=== PATIENT | female | born 1985 | race American Indian/Alaskan Native ===

== ENCOUNTER 2021-06-22 11:33 | Observation (INO) | payer MEDICAID ==
[2021-06-22] MEDS ORDERED: SODIUM CHLORIDE 0.9% 1000 ML 1,000 ML IV ONE ×2 (11:54→13:42)
--- NOTE | 2021-06-22 11:55 | Emergency Department Report ---
ED General Adult HPI - General Chief complaint: Abdominal Pain Stated complaint: TWISTED OVARIES Time Seen by Provider: 06/22/21 11:43 Source: patient Mode of arrival: Wheelchair Limitations: No Limitations - History of Present Illness Initial comments: 35-year-old -Portuguese female sent to the ER by Dr. Hartley for possible exploratory surgery for concern for ovarian torsion. Patient is tearful and in pain. Patient reports that she has been in pain with worsening in the last 12 days. She does admit to some vaginal bleeding some diarrhea. She states that she had taken pill. She denies any nausea no vomiting no chest pain or shortness of breath Location: pelvis Severity scale (0 -10): 9 Quality: stabbing, sharp Consistency: constant Improves with: none Worsens with: none Associated Symptoms: denies other symptoms Treatments Prior to Arrival: none - Related Data Previous Rx's Medication Instructions Recorded Last Taken Type HYDROcodone/APAP 5-325 [[place] 2 each PO Q6HR PRN #30 tablet 06/22/21 Unknown Rx 5/325] HYDROcodone/APAP 5-325 [[place] 2 each PO Q6HR PRN #30 tablet 06/22/21 Unknown Rx 5/325] Allergies Allergy/AdvReac Type Severity Reaction Status Date / Time No Known Allergies Allergy Verified 06/22/21 11:44 ED Review of Systems ROS: Stated complaint: TWISTED OVARIES Other details as noted in HPI Constitutional: no symptoms reported Eyes: as per HPI ENT: as per HPI Respiratory: no symptoms reported Gastrointestinal: abdominal pain, diarrhea. denies: nausea, vomiting, constipation, hematemesis, hematochezia ED Past Medical Hx - Medications Home Medications: Home Medications Medication Instructions Recorded Confirmed Last Taken Type HYDROcodone/APAP 5-325 [[place] 2 each PO Q6HR PRN #30 tablet 06/22/21 Unknown Rx 5/325] HYDROcodone/APAP 5-325 [[place] 2 each PO Q6HR PRN #30 tablet 06/22/21 Unknown Rx 5/325] ED Physical Exam - General Limitations: No Limitations General appearance: alert, in distress, other (Appears to be disc comfort) - Head Head exam: Present: atraumatic, normocephalic - Eye Eye exam: Present: normal appearance - ENT ENT exam: Present: mucous membranes moist - Respiratory Respiratory exam: Absent: respiratory distress, accessory muscle use - Cardiovascular Cardiovascular Exam: Present: tachycardia - GI/Abdominal GI/Abdominal exam: Present: soft, tenderness, guarding - Extremities Exam Extremities exam: Present: normal inspection, full ROM - Back Exam Back exam: Present: normal inspection - Neurological Exam Neurological exam: Present: alert, oriented X3 - Psychiatric Psychiatric exam: Present: normal affect, normal mood - Skin Skin exam: Present: warm, dry, intact, normal color. Absent: rash ED Course Vital Signs 06/22/21 06/22/21 06/22/21 11:40 13:13 17:07 Temperature 98.3 F 98.1 F 97.8 F Pulse Rate 107 H 90 76 Respiratory 18 18 12 Rate Blood Pressure 122/77 113/59 Blood Pressure 114/36 [Right] O2 Sat by Pulse 100 100 100 Oximetry 06/22/21 06/22/21 06/22/21 17:12 17:17 17:22 Temperature Pulse Rate 74 71 71 Respiratory 23 15 17 Rate Blood Pressure 123/67 126/71 123/73 Blood Pressure [Right] O2 Sat by Pulse 100 100 100 Oximetry 06/22/21 06/22/21 17:37 17:45 Temperature 98.1 F Pulse Rate 70 Respiratory 20 22 Rate Blood Pressure 126/74 Blood Pressure [Right] O2 Sat by Pulse 100 Oximetry - Reevaluation(s) Reevaluation #1: 06/22/21 12:35 Patient reports her pain is a 10 out of [address] Hartley he agrees to morphine 4 mg IV Zofran 4 mg IV. Consent was signed by Dr. Hartley and witnessed by me. ED Medical Decision Making - Lab Data Result diagrams: 06/22/21 11:56 - Medical Decision Making 35-year-old -Portuguese female sent to the ER by Dr. Hartley for possible exploratory surgery for concern for ovarian torsion. Patient is tearful and in pain. Patient reports that she has been in pain with worsening in the last 12 days. She does admit to some vaginal bleeding some diarrhea. She states that she had taken pill. She denies any nausea no vomiting no chest pain or shortness of breath Orders have been placed CBC type and screen serum hCG n.p.o. normal saline 125 mL/h, pelvic ultrasound IV placement. Critical care attestation.: If time is entered above; I have spent that time in minutes in the direct care of this critically ill patient, excluding procedure time. ED Disposition Clinical Impression: Pelvic pain Disposition: 01 HOME / SELF CARE / HOMELESS Is pt being admited?: No Does the pt Need Aspirin: No Condition: Good
[2021-06-22 12:27] LABS: Basophils % (Auto) 0.4 % (0.0-1.8); Eosinophils # (Auto) 0.1 K/mm3 (0.0-0.4); Hematocrit 30.2 % (30.3-42.9); Hemoglobin 10.2 gm/dl (10.1-14.3); Lymphocytes # (Auto) 1.5 K/mm3 (1.2-5.4); Lymphocytes % (Auto) 22.1 % (13.4-35.0); Mean Corpuscular HGB Conc 34 % (30-34); Mean Corpuscular Volume 94 fl (79-97); Monocytes # (Auto) 0.4 K/mm3 (0.0-0.8); Monocytes % (Auto) 5.2 % (0.0-7.3); Platelet Count 287 K/mm3 (140-440); Red Blood Count 3.22 M/mm3 (3.65-5.03); Red Cell Distribution Width 12.6 % (13.2-15.2)
[2021-06-22] MEDS ORDERED: ONDANSETRON 4 MG/2 ML INJ IV ONE (12:35)
[2021-06-22] MEDS ORDERED: MORPHINE 4 MG/1 ML INJ IV ONE (12:35)
--- NOTE | 2021-06-22 12:58 | Ultrasound Report ---
Ultrasound pelvis duplex Doppler complete HISTORY: Pelvic pain, concern for ovarian torsion, right lower quadrant pain for 12 days TECHNIQUE: Transabdominal ultrasound with color and spectral Doppler imaging. COMPARISON: None. FINDINGS: Transabdominal exam is limited and resolution secondary to an empty bladder and poor sonogr aphic window. The uterus is enlarged and heterogeneous measuring 9.9 x 5.0 x 6.8 cm. Multiple fibroid s are identified. The largest fibroid measures 5.5 cm at the fundus. The endometrial stripe measures 14 mm. The left ovary is not identified. The right ovary is identified in the cul-de-sac but also poorly imaged. The right ovary measures 3.4 x 2.8 x 3.2 cm. No ovarian cyst or mass. No convincing blood flow to the right ovary is demonstrated on color and spectral Doppler interrogation. IMPRESSION: Limited exam as described. No convincing blood flow to the right ovary is demonstrated on this limite d transabdominal exam. The left ovary is not visualized. Uterine fibroid disease. CRITICAL RESULT: Time of Discovery (NURSE CHARGE RN/CDT): 1145 hours Time of Communication (NURSE CHARGE RN/CDT): 1151 hours Licensed Practitioner Receiving Report: Kerline West Read-Back Performed: Yes. Signer Name: Sergo Mclaughlin Jr, MD Signed: 06/22/2021 12:54 PM Workstation Name: [id number]
--- NOTE | 2021-06-22 14:39 | History and Physical Report ---
History of Present Illness Date of examination: 06/22/21 Date of admission: 06/22/21 Chief complaint: lower abd and pelvic pains x1wk duration History of present illness: Patient was under management for elective using mifepristone. Process was progressing as expected until the emergence of persistent pain a 1wk ago. ER noted a possible non-perfusion of right ovary. No free fluid or structure were found. Past History Past Medical History: no pertinent history VERIFICATION SPECIALIST History: fibroids Medications and Allergies Allergies Allergy/AdvReac Type Severity Reaction Status Date / Time No Known Allergies Allergy Verified 06/22/21 11:44 Active Meds: Active Medications Sodium Chloride (Nacl 0.9% 1000 Ml) 1,000 mls @ 125 mls/hr IV BOLUS ONE Stop: 06/22/21 19:53 Last Admin: 06/22/21 12:17 Dose: 125 mls/hr Sodium Chloride (Nacl 0.9% 1000 Ml) 1,000 mls @ 999 mls/hr IV BOLUS ONE Stop: 06/22/21 14:42 Last Admin: 06/22/21 13:44 Dose: Not Given Review of Systems All systems: negative Gastrointestinal: abdominal pain Genitourinary: pelvic pain - Vital Signs Vital signs: Vital Signs Temp Pulse Resp BP Pulse Ox 98.3 F 107 H 18 122/77 100 06/22/21 11:40 06/22/21 11:40 06/22/21 11:40 06/22/21 11:40 06/22/21 11:40 Temp Pulse Resp BP Pulse Ox 98.1 F 90 18 114/36 100 06/22/21 13:13 06/22/21 13:13 06/22/21 13:13 06/22/21 13:13 06/22/21 13:13 - Physical Exam Breasts: Positive: deferred Cardiovascular: Normal S1, Normal S2 Lungs: Positive: Normal air movement Abdomen: Positive: tenderness, guarding, normal bowel sounds, rigidity Uterus: Positive: normal size, nodular Extremities: Positive: normal Deep Tendon Reflex Grade: Normal +2 Results Result Diagrams: 06/22/21 11:56 Abnormal lab results 06/22/21 06/22/21 Range/Units 11:56 11:56 RBC 3.22 L (3.65-5.03) M/mm3 Hct 30.2 L (30.3-42.9) % RDW 12.6 L (13.2-15.2) % Seg Neutrophils % 71.3 H (40.0-70.0) % HCG, Quant 960.8 H (0-4) mIU/mL All other labs normal. Assessment and Plan - Patient Problems (1) Abdominal pain Current Visit: Yes Status: Acute (2) Pelvic pain Current Visit: Yes Status: Acute (3) Ovarian torsion Current Visit: Yes Status: Acute Plan to address problem: for exploratory laparotomy.
[2021-06-22] MEDS ORDERED: LIDOCAINE MPF (2%) 20 MG/1 ML VIAL 5 ML ONE (14:57)
[2021-06-22] MEDS ORDERED: SUCCINYLCHOLINE CHLORIDE 200 MG/10 ML INJ MDV ONE (14:57)
[2021-06-22] MEDS ORDERED: ROCURONIUM 50 MG/5 ML INJ IV ONE (14:58)
[2021-06-22] MEDS ORDERED: propofoL 200 MG/20 ML VIAL IV ONE (14:58)
[2021-06-22] MEDS ORDERED: HYDROmorphone 1 MG/1 ML INJ ONE (14:58)
[2021-06-22] MEDS ORDERED: MIDAZOLAM 2 MG/2 ML INJ ONE (15:11)
[2021-06-22] MEDS ORDERED: SODIUM CHLORIDE 0.9% 1000 ML 1,000 ML ONE ×2 (15:17→16:44)
--- NOTE | 2021-06-22 15:21 | Anesthesia Consultation ---
Anesthesia Consult and Med Hx Date of service: 06/22/21 - Airway Anesthetic Teeth Evaluation: Good ROM Head & Neck: Adequate Mental/Hyoid Distance: Adequate Mallampati Class: Class III Intubation Access Assessment: Possibly Difficult - Pre-Operative Health Status ASA Pre-Surgery Classification: ASA2, Emergency Proposed Anesthetic Plan: General - Pulmonary Hx Smoking: Yes (THC) Hx Asthma: Yes Hx Respiratory Symptoms: No - Cardiovascular System Hx Hypertension: No - Central Nervous System CVA: No - Endocrine Hx Renal Disease: No Hx Liver Disease: No Hx Insulin Dependent Diabetes: No Hx Non-Insulin Dependent Diabetes: No Hx Thyroid Disease: No - Hematic Hx Anemia: Yes - Other Systems Hx Obesity: No - Additional Comments Anesthesia Medical History Comments: No hx anesthetic complications. Concern for ovarian torsion scheduled for ex-lap.
--- NOTE | 2021-06-22 15:22 | Anesthesia Day of Surgery ---
Anesthesia Day of Surgery - Day of Surgery Patient Examined: Yes Patient H&P Reviewed: Yes Patient is NPO: Yes
[2021-06-22] MEDS ORDERED: ceFAZolin 1 GM VIAL ONE ×2 (15:36)
[2021-06-22] MEDS ORDERED: SODIUM CHLORIDE 0.9% IRR 1,500 ML BOTTLE IR ONE (15:48)
[2021-06-22] MEDS ORDERED: dexAMETHasone 20 MG/5 ML VIAL ONE (15:54)
[2021-06-22] MEDS ORDERED: ONDANSETRON 4 MG/2 ML INJ ONE (15:54)
[2021-06-22] MEDS ORDERED: ONDANSETRON 4 MG/2 ML INJ IV PRN ×2 (16:30→18:03)
--- NOTE | 2021-06-22 17:08 | Operative Report ---
Operative Report Operative Report: Date of surgery: October 01, 2019 Admission diagnosis: Pelvic pain Postoperative diagnosis: The same. Procedure: Diagnostic laparotomy, Surgeon: Bill De La Fuente MD Anesthesia: General anesthesia Anesthesiologist: Chong BASURTO Estimated blood loss: Less than 2 5 cc Complications: None Findings: Thefallopian tubes and ovaries were all grossly normal. The bowels, omentum, inferior dome of the diaphragm, the liver were all grossly normal. There were two 4 x 4 inch fibroids distending the anterior fundal aspect of the uterus. The one on the right side was undergoing a degenerative change with denudation of the serosa with evidence oozing of blood from the convex aspect. This oozing of blood likely explained the excruciating pain the patient was feeling within her abdomen and pelvis. Procedure in details: Patient was taken to the operating room and in the straight supine position she was given general anesthesia. Patient was then put in the straight supine position and prepped in the abdomen. The drapes were placed. A timeout was done. Wished to go ahead from the insurance verification specialist a subumbilical midline incision was made. The anterior abdominal wall was divided in layers without any difficulty. The uterus with contain fibroids was exteriorized. Incisions were made over the capsule of the 2 big fibroids and removed. The craters were extirpated with multiple stitches of #1 Vicryl hemostasis was secured with Surgicel. The pelvis was again inspected and no other abnormalities were found. The upper abdomen was unremarkable. The fascia was closed with looped PDS the subcutaneous layer was hemostatic. The skin was closed subcuticularly with 4-0 Vicryl. The patient tolerated the procedure well. There were no complications. Blood loss was estimated at less than 250 cc. All sponges and instruments were accounted for. The patient was transferred in satisfactory condition to the recovery room.
[2021-06-22] MEDS ORDERED: oxyCODONE /ACETAMINOPHEN 5-325MG TAB PO PRN ×2 (17:19→18:03)
[2021-06-22] MEDS: HYDROmorphone 1 MG/1 ML INJ IV PRN ×2 (17:45→17:55)
[2021-06-22] MEDS ORDERED: ACETAMINOPHEN 325 MG TAB PO PRN (18:03)
[2021-06-22] MEDS ORDERED: HYDROmorphone 1 MG/1 ML INJ IV PRN (18:03)
[2021-06-22] MEDS ORDERED: SODIUM CHLORIDE 0.9% 1000 ML 1,000 ML IV SCH (18:15)
--- NOTE | 2021-06-22 18:26 | Post Anesthesia Evaluation ---
- Post Anesthesia Evaluation Patient Participated: Yes Airway Patent: Yes Stable Respiratory Function: Yes Nausea/Vomiting: No Temp > 96.8F: Yes Pain Manageable: Yes Adequeate Hydration: Yes Anesthesia Complications: No
[2021-06-22] MEDS: oxyCODONE /ACETAMINOPHEN 5-325MG TAB PO PRN (19:34)
[2021-06-23] MEDS: oxyCODONE /ACETAMINOPHEN 5-325MG TAB PO PRN ×3 (00:27→09:27)
[2021-06-23] MEDS ORDERED: MORPHINE 2 MG/1 ML INJ IV PRN (08:00)
--- NOTE | 2021-06-23 08:59 | Progress Note ---
Assessment and Plan - Patient Problems (1) Abdominal pain Current Visit: Yes Status: Resolved (2) Pelvic pain Current Visit: Yes Status: Resolved (3) Ovarian torsion Current Visit: Yes Status: Resolved (4) Post-operative state Current Visit: Yes Status: Acute Plan to address problem: Stable and ready for d/c. Subjective Date of service: 06/23/21 Principal diagnosis: Status post exploratory laparotomy day 1. Interval history: Was placed on 23 hrs observation post op. Stable and happy and alert and chatty. Objective - Constitutional Vitals: Vital Signs - 12hr 06/23/21 06/23/21 06/23/21 00:00 00:27 03:25 Temperature 99.2 F Pulse Rate 80 Respiratory 20 12 12 Rate Blood Pressure 90/54 [Right] O2 Sat by Pulse 100 Oximetry 06/23/21 04:00 Temperature 98.5 F Pulse Rate 73 Respiratory 20 Rate Blood Pressure 89/54 [Right] O2 Sat by Pulse 100 Oximetry General appearance: Present: no acute distress - EENT Eyes: PERRL Extremities: pulses intact, No edema, normal color, Full ROM - Gastrointestinal General gastrointestinal: Present: normal bowel sounds - Genitourinary Female genitourinary: deferred - Integumentary Integumentary: clear, warm, dry - Labs CBC & Chem 7: 06/22/21 11:56 Labs: Abnormal lab results 06/22/21 06/22/21 Range/Units 11:56 11:56 RBC 3.22 L (3.65-5.03) M/mm3 Hct 30.2 L (30.3-42.9) % RDW 12.6 L (13.2-15.2) % Seg Neutrophils % 71.3 H (40.0-70.0) % HCG, Quant 960.8 H (0-4) mIU/mL Medications & Allergies - Medications Allergies/Adverse Reactions: Allergies No Known Allergies Allergy (Verified 06/22/21 11:44) Home Medications: Home Medications Medication Instructions Recorded Confirmed Last Taken Type HYDROcodone/APAP 5-325 [[place] 2 each PO Q6HR PRN #30 tablet 06/22/21 Unknown Rx 5/325] HYDROcodone/APAP 5-325 [[place] 2 each PO Q6HR PRN #30 tablet 06/22/21 Unknown Rx 5/325] Active Medications: Generic Name Dose Route Start Last Admin Trade Name Mikeq PRN Reason Stop Dose Admin Acetaminophen 650 mg 06/22/21 18:03 Acetaminophen 325 Mg Tab PO Q4H PRN Pain MILD(1-3)/Fever >100.5/GARG Sodium Chloride 1,000 mls @ 125 mls/hr 06/22/21 18:15 06/22/21 19:37 Nacl 0.9% 1000 Ml IV 125 mls/hr DIRECT JONAH Administration Morphine Sulfate 2 mg 06/23/21 08:00 Morphine 2 Mg/1 Ml Inj IV Q4H PRN Pain, Moderate (4-6) Ondansetron HCl 4 mg 06/22/21 18:03 Ondansetron 4 Mg/2 Ml Inj IV Q8H PRN Nausea And Vomiting Oxycodone/Acetaminophen 2 tab 06/22/21 18:00 06/23/21 03:25 Oxycodone /Acetaminophen 5-325mg Tab PO 2 tab ONCE PRN Administration Pain , Severe (7-10) Sodium Chloride 10 ml 06/22/21 22:00 Sodium Chloride 0.9% 10 Ml Flush Syringe IV BID JONAH Sodium Chloride 10 ml 06/22/21 18:03 Sodium Chloride 0.9% 10 Ml Flush Syringe IV PRN PRN LINE FLUSH
--- NOTE | 2021-06-23 09:01 | Discharge Summary ---
Providers - Providers Date of Admission: 06/22/21 18:04 Date of discharge: 06/23/21 Attending physician: DEEP BROWN MD Primary care physician: REAL TIME TRADER Hospitalization Reason for admission: observation Procedure: other (Exploratory laparotomy and myomectomy.) Procedure details: See op report. Incision: normal, dry, intact Condition at discharge: Good Disposition: 01 HOME / SELF CARE / HOMELESS - Discharge Diagnoses (1) Abdominal pain Status: Resolved (2) Pelvic pain Status: Resolved (3) Ovarian torsion Status: Resolved (4) Post-operative state Status: Acute Plan - Discharge Medications Prescriptions: HYDROcodone/APAP 5-325 [[place] 5/325] 2 each PO Q6HR PRN #30 tablet PRN Reason: Pain - Provider Discharge Summary Activity: routine, no heavy lifting 4 weeks, no strenuous exercise Diet: routine Instructions: routine Additional instructions: [] Smoking cessation referral if applicable(refer to patient education folder for contact #) [] Refer to [facility]'s [facility] Booklet Call your doctor immediately for: * Fever > 100.5 * Heavy vaginal bleeding ( >1 pad per hour) * Severe persistent headache * Shortness of breath * Reddened, hot, painful area to leg or breast * Drainage or odor from incision. * Keep incision clean and dry at all times and follow doctor's instructions regarding bathing/showering - Follow up plan Follow up: PRIMARY CARE, [Primary Care Provider] - 3-5 Days Forms: Outpatient Surgery DC Inst.
[2021-06-23 16:45] VITALS: BP 118/86
== END 2021-06-23 15:20 | disposition home or self-care (01) ==
LOC: ED 11:33 → OR 17:40 → OB 18:04
PROVIDERS: ADMIT Obstetrics & Gynecology; ATTEND Obstetrics & Gynecology
DX: R10.2 Pelvic and perineal pain (principal); R10.30 Lower abdominal pain, unspecified; N83.511 Torsion of right ovary and ovarian pedicle; N93.9 Abnormal uterine and vaginal bleeding, unspecified; R19.7 Diarrhea, unspecified; Z79.899 Other long term (current) drug therapy; Z98.890 Other specified postprocedural states
CPT/HCPCS: 36415; 58140; 84702; 85025; 86850; 86900; 86901; 88305; 93975; 96361; 96374; 96375; 99284; G0378; J0330; J0690; J1100; J1170; J2250; J2270; J2405; J2704; J3490; J7030; J7120; Q0162